=== PATIENT | female | born 1985 | race Caucasian/White ===

== ENCOUNTER 2017-06-14 21:23 | Emergency (ER) | payer MEDICAID ==
[~2017-06-14] VITALS: Ht 160 cm; Wt 73.0 kg
[2017-06-15] MEDS ORDERED: ACETAMINOPHEN 325MG TABLET PO ONE (07:00)
[2017-06-15] MEDS ORDERED: ONDANSETRON 4MG ODT PO ONE (07:00)
[2017-06-15] MEDS ORDERED: MAGNESIUM/ALUMINUM HYDROXIDE/SIMETHICONE 30ML UDC PO ONE (07:00)
[2017-06-15] MEDS ORDERED: FAMOTIDINE 20MG TABLET PO ONE (07:00)
[2017-06-15 07:25] LABS: BASOPHILS % 0.1 % (0.0-2.0); HEMATOCRIT. 40.8 % (36.0-48.0); HEMOGLOBIN. 13.7 g/dL (12.0-16.0); LYMPHOCYTES % 13.2 % (20.0-50.0); MEAN CORPUSCULAR HEMOGLOBIN 29.6 pg (28.0-32.0); MEAN CORPUSCULAR VOLUME 88.5 fL (81.0-99.0); MEAN PLATELET VOLUME 9.1 fl (7.4-10.4); MONOCYTES % 9.2 % (2.0-8.0); NEUTROPHILS % 77.5 % (40.0-76.0); PLATELET 291 x1000/uL (130-400); RED BLOOD CELL COUNT 4.61 mill/uL (4.2-5.4); RED CELL DISTRIBUTION WIDTH 13.1 % (11.6-14.6)
[2017-06-15 07:36] LABS: CARBON DIOXIDE 25 mEq/L (21-32); CHLORIDE 105 mEq/L (98-107)
[2017-06-15 08:10] VITALS: BP 111/58
== END 2017-06-15 08:26 | disposition home or self-care (01) ==
LOC: ER 22:23
DX: O26.891 Other specified pregnancy related conditions, first trimester (principal); R10.13 Epigastric pain; R19.7 Diarrhea, unspecified; Z3A.00 Weeks of gestation of pregnancy not specified
CPT/HCPCS: 36415; 80053; 81025; 83690; 84702; 85025; 99284; Q0162